=== PATIENT | female | born 1955 | race Caucasian/White ===

== ENCOUNTER 2021-05-14 13:58 | Inpatient (IN) ==
[2021-05-14] MEDS ORDERED: 0.9 % Sodium Chloride 1,000 ML IVC ONE ×3 (15:24→16:40)
[2021-05-14 16:16] LABS: Hemoglobin 9.9 g/dL (11.5-15.4); Mean Corpuscular Hemoglobin 28.7 pg (28.0-33.3); Mean Platelet Volume 9.8 fL (9.4-12.4); Platelet Count 414 K/mcL (140-400); Red Blood Count 3.45 M/mcL (3.82-4.97); Red Cell Distribution Width 14.3 % (11.5-14.5); White Blood Count 19.9 K/mcL (4.3-11.1)
[2021-05-14 16:26] LABS: Albumin 2.9 g/dL (3.5-5.7); Albumin/Globulin Ratio 0.8 (1.1-2.2); Bilirubin,Direct 0.1 mg/dL (0.0-0.2); Bilirubin,Indirect 0.6 mg/dL (0.0-1.0); Bilirubin,Total 0.7 mg/dL (0.3-1.0); Calcium 8.7 mg/dL (8.6-10.3); Globulin 3.5 g/dL (2.4-3.5); Potassium 2.8 mEq/L (3.5-5.1); Total Protein 6.4 g/dL (6.4-8.9)
[2021-05-14] MEDS ORDERED: MetroNIDAZOLE 500 MG/100 ML 500 MG/100 ML BAG IVPB ONE (16:27)
[2021-05-14] MEDS ORDERED: Acetaminophen 325 MG TABLET PO PRN (16:52)
[2021-05-14] MEDS ORDERED: Ondansetron 4 MG/2 ML VIAL IVP PRN (16:52)
[2021-05-14] MEDS ORDERED: Naloxone 0.4 MG/ML INJ IVP PRN (16:52)
[2021-05-14] MEDS: *HR* Heparin 5,000 UNIT/ML VIAL SQ SCH (20:04)
[2021-05-14] MEDS: *HR* HYDROmorphone (PF) 1 MG/ML SYRINGE IVP PRN (20:07)
[2021-05-14] MEDS: 0.9 % Sodium Chloride 1,000 ML IVC SCH (21:06)
[2021-05-14] MEDS ORDERED: Potassium Chloride 40 MEQ, Lidocaine 1% 2 ML in 0.9 % Sodium Chloride 500 ML IVPB ONE (22:00)
[2021-05-15] MEDS: MetroNIDAZOLE 500 MG/100 ML 500 MG/100 ML BAG IVPB SCH ×3 (01:16→17:57)
[2021-05-15 01:35] LABS: Calcium 7.8 mg/dL (8.6-10.3); Magnesium 2.1 mg/dL (1.6-2.6); Phosphorous 3.2 mg/dL (2.7-4.5)
[2021-05-15 01:47] LABS: Hematocrit 26.9 % (35.3-44.9); Hemoglobin 8.9 g/dL (11.5-15.4); Mean Corpuscular HGB Conc 33.1 g/dL (31.6-35.5); Mean Corpuscular Hemoglobin 29.2 pg (28.0-33.3); Mean Corpuscular Volume 88.2 fL (83.0-100.0); Mean Platelet Volume 9.5 fL (9.4-12.4); Platelet Count 375 K/mcL (140-400); Red Blood Count 3.05 M/mcL (3.82-4.97); Red Cell Distribution Width 14.4 % (11.5-14.5); White Blood Count 15.5 K/mcL (4.3-11.1)
[2021-05-15 02:06] LABS: Bacteria,Urine Few per hpf (None-Few); Bilirubin,Urine Negative (Negative); Blood,Urine Small (Negative); Clarity,Urine Turbid (Clear); Color,Urine Yellow (Yellow); Glucose,Urine (UA) Normal (Normal); Ketones,Urine Negative (Negative); Leukocyte Esterase,Urine Trace (Negative); Mucus,Urine Few per lpf (None-Few); Nitrite,Urine Negative (Negative); PH,Urine 5.5 pH Units (5.0-8.0); Protein,Urine 30 mg/dL (Neg-Trace); RBC,Urine 0-3 per hpf (0-3); Specific Gravity,Urine 1.012 (1.010-1.025); Squamous Epithelial Cell,Urine Few per hpf (None-Few)
[2021-05-15 04:32] LABS: Basophils # 0.2 K/mcL (0.0-0.2); Lymphocytes # 1.6 K/mcL (0.6-4.6); Monocytes # 0.6 K/mcL (0.0-1.3); Neutrophils # 13.2 K/mcL (1.6-8.9)
[2021-05-15 04:33] LABS: Hypochromasia Present (Not Present); Platelet Estimate Normal (Normal); Toxic Granulation Present (Not Present)
[2021-05-15] MEDS: *HR* Heparin 5,000 UNIT/ML VIAL SQ SCH ×2 (05:58→17:58)
[2021-05-15] MEDS: *HR* HYDROmorphone (PF) 1 MG/ML SYRINGE IVP PRN ×3 (07:48→20:21)
[2021-05-15] MEDS ORDERED: *HR* Propofol 200 MG/20 ML VIAL IVP ONE (09:58)
[2021-05-15] MEDS ORDERED: *HR* Midazolam HCl 2 MG/2 ML VIAL ONE (09:58)
[2021-05-15] MEDS ORDERED: *HR* FentaNYL (PF) 100 MCG/2 ML VIAL ONE (09:58)
[2021-05-15] MEDS ORDERED: Ondansetron 4 MG/2 ML VIAL ONE (10:01)
[2021-05-15] MEDS ORDERED: *HR* Succinylcholine 200 MG/10 ML VIAL IVP ONE (10:01)
[2021-05-15] MEDS ORDERED: *HR* Rocuronium Bromide 50 MG/5 ML VIAL ONE (10:03)
[2021-05-15] MEDS ORDERED: *HR* Remifentanil 1 MG VIAL IVP ONE (11:13)
[2021-05-15] MEDS ORDERED: EPHEDrine 50 MG/ML VIAL ONE (11:50)
[2021-05-15] MEDS ORDERED: *HR* Vasopressin 20 UNIT/ML VIAL ONE (12:24)
[2021-05-15] MEDS ORDERED: Albumin Human 5% 25.0 GM/500 ML IV.SOLN ONE (12:26)
[2021-05-15] MEDS ORDERED: *HR* HYDROMORPHONE 2 MG/ML VIAL ONE (12:52)
[2021-05-15] MEDS ORDERED: *HR* OxyCODONE Immed Rel 5 MG TABLET PO PRN (13:57)
[2021-05-15] MEDS ORDERED: Ondansetron 4 MG/2 ML VIAL IVP PRN (13:57)
[2021-05-15] MEDS: *HR* HYDROmorphone PF 0.5 MG/0.5 ML SYRINGE IVP PRN ×2 (14:16→14:28)
[2021-05-15] MEDS: 0.9 % Sodium Chloride 1,000 ML IVC SCH ×2 (14:23→17:54)
[2021-05-15] MEDS ORDERED: Acetaminophen IV 1,000 MG/100 ML BAG IVPB ONE ×2 (14:42→14:48)
[2021-05-15] MEDS ORDERED: Naloxone 0.4 MG/ML INJ IVP PRN (15:34)
[2021-05-15] MEDS ORDERED: Acetaminophen 325 MG TABLET PO PRN (15:34)
[2021-05-15] MEDS ORDERED: 0.9 % Sodium Chloride 1,000 ML IVC ONE (15:34)
[2021-05-16] MEDS: *HR* HYDROmorphone (PF) 1 MG/ML SYRINGE IVP PRN ×3 (00:36→19:50)
[2021-05-16] MEDS: MetroNIDAZOLE 500 MG/100 ML 500 MG/100 ML BAG IVPB SCH ×3 (00:47→17:31)
[2021-05-16] MEDS: *HR* Heparin 5,000 UNIT/ML VIAL SQ SCH ×2 (05:26→18:55)
[2021-05-16 05:41] LABS: Hematocrit 29.4 % (35.3-44.9); Hemoglobin 9.6 g/dL (11.5-15.4); Mean Corpuscular HGB Conc 32.7 g/dL (31.6-35.5); Mean Corpuscular Hemoglobin 28.7 pg (28.0-33.3); Mean Platelet Volume 9.9 fL (9.4-12.4); Platelet Count 517 K/mcL (140-400); Red Blood Count 3.34 M/mcL (3.82-4.97); White Blood Count 16.6 K/mcL (4.3-11.1)
[2021-05-16 05:55] LABS: Albumin 2.9 g/dL (3.5-5.7); Albumin/Globulin Ratio 0.9 (1.1-2.2); Bilirubin,Total 0.5 mg/dL (0.3-1.0); Calcium 8.1 mg/dL (8.6-10.3); Globulin 3.2 g/dL (2.4-3.5); Potassium 3.4 mEq/L (3.5-5.1); Total Protein 6.1 g/dL (6.4-8.9)
[2021-05-16] MEDS: 0.9 % Sodium Chloride 1,000 ML IVC SCH ×3 (05:57→21:02)
[2021-05-16] MEDS ORDERED: Potassium Chloride 40 MEQ, Lidocaine 1% 2 ML in 0.9 % Sodium Chloride 500 ML IVPB ONE (07:32)
[2021-05-16] MEDS ORDERED: 0.9 % Sodium Chloride 500 ML IVC ONE ×2 (10:59→23:29)
[2021-05-16] MEDS ORDERED: Acetaminophen IV 1,000 MG/100 ML BAG IVPB ONE (15:58)
[2021-05-17 01:21] LABS: Hematocrit 27.7 % (35.3-44.9); Hemoglobin 8.9 g/dL (11.5-15.4); Mean Corpuscular HGB Conc 32.1 g/dL (31.6-35.5); Mean Corpuscular Hemoglobin 29.1 pg (28.0-33.3); Mean Corpuscular Volume 90.5 fL (83.0-100.0); Mean Platelet Volume 10.9 fL (9.4-12.4); Platelet Count 380 K/mcL (140-400); Red Blood Count 3.06 M/mcL (3.82-4.97); Red Cell Distribution Width 15.6 % (11.5-14.5); White Blood Count 17.9 K/mcL (4.3-11.1)
[2021-05-17] MEDS: MetroNIDAZOLE 500 MG/100 ML 500 MG/100 ML BAG IVPB SCH ×3 (01:23→23:19)
[2021-05-17 02:00] LABS: Albumin 2.8 g/dL (3.5-5.7); Bilirubin,Total 0.4 mg/dL (0.3-1.0); Calcium 7.6 mg/dL (8.6-10.3); Globulin 2.9 g/dL (2.4-3.5); Magnesium 1.9 mg/dL (1.6-2.6); Phosphorous 3.6 mg/dL (2.7-4.5); Potassium 4.1 mEq/L (3.5-5.1); Total Protein 5.7 g/dL (6.4-8.9)
[2021-05-17 02:11] LABS: Lymphocytes # 1.4 K/mcL (0.6-4.6); Monocytes # 0.7 K/mcL (0.0-1.3); Neutrophils # 15.8 K/mcL (1.6-8.9); Platelet Estimate Normal (Normal); Reactive Lymphocytes Present (Not Present); Toxic Granulation Present (Not Present)
[2021-05-17] MEDS: *HR* Heparin 5,000 UNIT/ML VIAL SQ SCH ×2 (05:18→17:35)
[2021-05-17] MEDS: 0.9 % Sodium Chloride 1,000 ML IVC SCH ×3 (05:19→17:43)
[2021-05-17] MEDS: *HR* HYDROmorphone (PF) 1 MG/ML SYRINGE IVP PRN ×2 (08:01→17:33)
[2021-05-17] MEDS: Cefepime HCl 1,000 MG in Water for inj. (sterile) 10 ML IVP SCH (17:34)
[2021-05-17] MEDS: Ondansetron 4 MG/2 ML VIAL IVP PRN (23:19)
[2021-05-18] MEDS: *HR* HYDROmorphone (PF) 1 MG/ML SYRINGE IVP PRN (01:53)
[2021-05-18] MEDS ORDERED: *HR* Promethazine 25 MG/ML VIAL IM ONE (02:18)
[2021-05-18] MEDS: Cefepime HCl 1,000 MG in Water for inj. (sterile) 10 ML IVP SCH (06:21)
[2021-05-18] MEDS: *HR* Heparin 5,000 UNIT/ML VIAL SQ SCH ×3 (06:21→18:31)
[2021-05-18 06:27] LABS: Hematocrit 27.8 % (35.3-44.9); Hemoglobin 9.1 g/dL (11.5-15.4); Mean Corpuscular HGB Conc 32.7 g/dL (31.6-35.5); Mean Corpuscular Hemoglobin 28.6 pg (28.0-33.3); Mean Corpuscular Volume 87.4 fL (83.0-100.0); Mean Platelet Volume 9.2 fL (9.4-12.4); Platelet Count 594 K/mcL (140-400); Red Blood Count 3.18 M/mcL (3.82-4.97); White Blood Count 24.5 K/mcL (4.3-11.1)
[2021-05-18] MEDS ORDERED: Fluconazole 400 MG/200 ML 400 MG/200 ML BAG IVPB ONE (06:47)
[2021-05-18 06:51] LABS: Albumin 2.6 g/dL (3.5-5.7); Albumin/Globulin Ratio 0.8 (1.1-2.2); Bilirubin,Total 0.4 mg/dL (0.3-1.0); Calcium 8.4 mg/dL (8.6-10.3); Globulin 3.2 g/dL (2.4-3.5); Potassium 3.4 mEq/L (3.5-5.1); Total Protein 5.8 g/dL (6.4-8.9)
[2021-05-18] MEDS ORDERED: Isovue-370 500 ML BOTTLE IVP ONE (06:56)
[2021-05-18] MEDS ORDERED: Famotidine 20 MG/2 ML VIAL IVP ONE (06:56)
[2021-05-18] MEDS ORDERED: Potassium Chloride 40 MEQ, Lidocaine 1% 2 ML in 0.9 % Sodium Chloride 500 ML IVPB ONE (08:09)
[2021-05-18] MEDS: Ondansetron 4 MG/2 ML VIAL IVP PRN (08:33)
[2021-05-18] MEDS ORDERED: Lidocaine Jelly 11 ml Syringe MM ONE (09:20)
[2021-05-18] MEDS ORDERED: Tetracaine/Benzocaine/Butamben 1 SPRAY AEROSOL MM ONE (09:20)
[2021-05-18] MEDS ORDERED: Ondansetron 4 MG/2 ML VIAL IVP ONE (09:48)
[2021-05-18] MEDS ORDERED: Isovue-370 500 ML BOTTLE PO ONE (10:42)
[2021-05-18] MEDS: MetroNIDAZOLE 500 MG/100 ML 500 MG/100 ML BAG IVPB SCH (12:04)
[2021-05-18] MEDS: Acetaminophen IV 1,000 MG/100 ML BAG IVPB SCH (15:31)
[2021-05-18] MEDS: 0.9 % Sodium Chloride 1,000 ML IVC SCH (15:48)
[2021-05-18] MEDS ORDERED: MetroNIDAZOLE 500 MG/100 ML 500 MG/100 ML BAG IVPB SCH (21:00)
[2021-05-18] MEDS ORDERED: *HR* HYDROmorphone (PF) 1 MG/ML SYRINGE IM ONE (22:15)
[2021-05-19] MEDS: 0.9 % Sodium Chloride 1,000 ML IVC SCH ×4 (00:22→17:02)
[2021-05-19] MEDS: Cefepime HCl 1,000 MG in Water for inj. (sterile) 10 ML IVP SCH ×2 (00:23→12:21)
[2021-05-19] MEDS: Acetaminophen IV 1,000 MG/100 ML BAG IVPB SCH ×5 (00:30→18:05)
[2021-05-19] MEDS: *HR* Heparin 5,000 UNIT/ML VIAL SQ SCH ×2 (05:38→17:01)
[2021-05-19 05:40] LABS: Mean Corpuscular Hemoglobin 28.3 pg (28.0-33.3); Mean Corpuscular Volume 88.3 fL (83.0-100.0); Platelet Count 534 K/mcL (140-400); Red Blood Count 2.83 M/mcL (3.82-4.97); Red Cell Distribution Width 16.4 % (11.5-14.5); White Blood Count 19.5 K/mcL (4.3-11.1)
[2021-05-19 05:41] LABS: Nucleated Red Blood Cells 0.2 /100 WBC (0)
[2021-05-19 05:56] LABS: Albumin 2.4 g/dL (3.5-5.7); Albumin/Globulin Ratio 0.8 (1.1-2.2); Bilirubin,Total 0.3 mg/dL (0.3-1.0); Calcium 8.4 mg/dL (8.6-10.3); Globulin 2.9 g/dL (2.4-3.5); Potassium 3.7 mEq/L (3.5-5.1); Total Protein 5.3 g/dL (6.4-8.9)
[2021-05-19 06:18] LABS: Anisocytosis 1+ (Not Present); Lymphocytes # 1.6 K/mcL (0.6-4.6); Monocytes # 1.2 K/mcL (0.0-1.3); Neutrophils # 16.4 K/mcL (1.6-8.9); Platelet Estimate Increased (Normal)
[2021-05-19 06:19] LABS: Toxic Granulation Present (Not Present)
[2021-05-19] MEDS: MetroNIDAZOLE 500 MG/100 ML 500 MG/100 ML BAG IVPB SCH ×2 (08:59→17:01)
[2021-05-19] MEDS: Fluconazole 200 MG/100 ML 200 MG/100 ML BAG IVPB SCH (09:00)
[2021-05-20] MEDS: Cefepime HCl 1,000 MG in Water for inj. (sterile) 10 ML IVP SCH ×3 (00:28→23:31)
[2021-05-20] MEDS: Acetaminophen IV 1,000 MG/100 ML BAG IVPB SCH ×5 (00:28→23:32)
[2021-05-20] MEDS: MetroNIDAZOLE 500 MG/100 ML 500 MG/100 ML BAG IVPB SCH ×3 (02:00→16:26)
[2021-05-20] MEDS: *HR* Heparin 5,000 UNIT/ML VIAL SQ SCH ×2 (04:47→17:58)
[2021-05-20 05:19] LABS: Hematocrit 26.7 % (35.3-44.9); Hemoglobin 8.5 g/dL (11.5-15.4); Mean Corpuscular HGB Conc 31.8 g/dL (31.6-35.5); Mean Corpuscular Hemoglobin 28.1 pg (28.0-33.3); Mean Corpuscular Volume 88.1 fL (83.0-100.0); Mean Platelet Volume 9.2 fL (9.4-12.4); Platelet Count 572 K/mcL (140-400); Red Blood Count 3.03 M/mcL (3.82-4.97); Red Cell Distribution Width 16.6 % (11.5-14.5)
[2021-05-20 05:38] LABS: Albumin 2.5 g/dL (3.5-5.7); Albumin/Globulin Ratio 0.8 (1.1-2.2); Bilirubin,Total 0.3 mg/dL (0.3-1.0); Calcium 8.2 mg/dL (8.6-10.3); Potassium 3.2 mEq/L (3.5-5.1); Total Protein 5.5 g/dL (6.4-8.9)
[2021-05-20 06:00] LABS: Lymphocytes # 1.8 K/mcL (0.6-4.6); Monocytes # 1.4 K/mcL (0.0-1.3); Neutrophils # 14.8 K/mcL (1.6-8.9); Platelet Estimate Increased (Normal); Reactive Lymphocytes Present (Not Present)
[2021-05-20] MEDS: 0.9 % Sodium Chloride 1,000 ML IVC SCH ×2 (06:29→16:27)
[2021-05-20] MEDS: Fluconazole 200 MG/100 ML 200 MG/100 ML BAG IVPB SCH (08:06)
[2021-05-20] MEDS ORDERED: Potassium Chloride 40 MEQ, Lidocaine 1% 2 ML in 0.9 % Sodium Chloride 500 ML IVPB ONE ×2 (08:09→17:00)
[2021-05-20 13:25] LABS: Magnesium 1.9 mg/dL (1.6-2.6); Phosphorous 2.4 mg/dL (2.7-4.5)
[2021-05-21] MEDS: MetroNIDAZOLE 500 MG/100 ML 500 MG/100 ML BAG IVPB SCH ×3 (02:59→20:40)
[2021-05-21] MEDS: Acetaminophen IV 1,000 MG/100 ML BAG IVPB SCH (05:28)
[2021-05-21] MEDS: *HR* Heparin 5,000 UNIT/ML VIAL SQ SCH ×2 (05:29→18:55)
[2021-05-21] MEDS: 0.9 % Sodium Chloride 1,000 ML IVC SCH ×2 (05:34→20:41)
[2021-05-21 05:45] LABS: Hematocrit 27.3 % (35.3-44.9); Hemoglobin 8.9 g/dL (11.5-15.4); Mean Corpuscular HGB Conc 32.6 g/dL (31.6-35.5); Mean Corpuscular Hemoglobin 28.8 pg (28.0-33.3); Mean Corpuscular Volume 88.3 fL (83.0-100.0); Mean Platelet Volume 9.8 fL (9.4-12.4); Nucleated Red Blood Cells 0.1 /100 WBC (0); Platelet Count 598 K/mcL (140-400); Red Blood Count 3.09 M/mcL (3.82-4.97); White Blood Count 22.1 K/mcL (4.3-11.1)
[2021-05-21 06:29] LABS: Eosinophils # 0.4 K/mcL (0.0-0.6); Lymphocytes # 2.2 K/mcL (0.6-4.6); Neutrophils # 18.6 K/mcL (1.6-8.9); Platelet Estimate Increased (Normal)
[2021-05-21 06:30] LABS: Anisocytosis 1+ (Not Present)
[2021-05-21 06:54] LABS: Albumin 2.5 g/dL (3.5-5.7); Albumin/Globulin Ratio 0.9 (1.1-2.2); Bilirubin,Total 0.4 mg/dL (0.3-1.0); Calcium 7.9 mg/dL (8.6-10.3); Globulin 2.9 g/dL (2.4-3.5); Potassium 3.4 mEq/L (3.5-5.1); Total Protein 5.4 g/dL (6.4-8.9)
[2021-05-21] MEDS ORDERED: Potassium Chloride 40 MEQ, Lidocaine 1% 2 ML in 0.9 % Sodium Chloride 500 ML IVPB ONE (09:00)
[2021-05-21] MEDS: Fluconazole 200 MG/100 ML 200 MG/100 ML BAG IVPB SCH (10:23)
[2021-05-21] MEDS: Ondansetron 4 MG/2 ML VIAL IVP PRN (10:27)
[2021-05-21 11:09] LABS: Bilirubin,Urine Negative (Negative); Blood,Urine Negative (Negative); Clarity,Urine Clear (Clear); Color,Urine Light-Yellow (Yellow); Glucose,Urine (UA) Normal (Normal); Granular Casts,Urine Few per lpf (None Seen); Hyaline Casts,Urine Few per lpf (None Seen); Ketones,Urine 10 mg/dL (Negative); Leukocyte Esterase,Urine Negative (Negative); Mucus,Urine Few per lpf (None-Few); Nitrite,Urine Negative (Negative); Protein,Urine 30 mg/dL (Neg-Trace); RBC,Urine 0-3 per hpf (0-3); Renal Epithelial Cells,Urine Few per hpf (None-Few); Specific Gravity,Urine 1.021 (1.010-1.025); Transitional Epi Cells,Urine Few per hpf (None-Few); Urobilinogen,Urine Normal (Normal); WBC,Urine 0-3 per hpf (0-3)
[2021-05-21] MEDS: Cefepime HCl 1,000 MG in Water for inj. (sterile) 10 ML IVP SCH (12:47)
[2021-05-21] MEDS ORDERED: *HR* Metoprolol 5 MG/5 ML VIAL IVP ONE (23:53)
[2021-05-22] MEDS: 0.9 % Sodium Chloride 1,000 ML IVC SCH ×2 (00:09→05:43)
[2021-05-22] MEDS: Cefepime HCl 1,000 MG in Water for inj. (sterile) 10 ML IVP SCH (00:09)
[2021-05-22] MEDS: MetroNIDAZOLE 500 MG/100 ML 500 MG/100 ML BAG IVPB SCH ×2 (01:55→09:58)
[2021-05-22] MEDS: *HR* Heparin 5,000 UNIT/ML VIAL SQ SCH ×2 (05:38→17:04)
[2021-05-22 09:20] LABS: Hematocrit 28.2 % (35.3-44.9); Mean Corpuscular HGB Conc 31.9 g/dL (31.6-35.5); Mean Corpuscular Hemoglobin 28.6 pg (28.0-33.3); Mean Corpuscular Volume 89.5 fL (83.0-100.0); Mean Platelet Volume 9.9 fL (9.4-12.4); Nucleated Red Blood Cells 0.1 /100 WBC (0); Platelet Count 511 K/mcL (140-400); Red Blood Count 3.15 M/mcL (3.82-4.97); Red Cell Distribution Width 17.6 % (11.5-14.5); White Blood Count 21.2 K/mcL (4.3-11.1)
[2021-05-22] MEDS: Meropenem 1,000 MG in Water for inj. (sterile) 20 ML IVP SCH ×3 (09:53→23:08)
[2021-05-22] MEDS: Fluconazole 200 MG/100 ML 200 MG/100 ML BAG IVPB SCH (09:54)
[2021-05-22] MEDS: polyethylene glycoL 3350 17 GM POWD.PACK PO SCH ×2 (09:55→20:15)
[2021-05-22] MEDS: Gabapentin 400 MG CAPSULE PO SCH ×3 (10:12→20:15)
[2021-05-22 10:18] LABS: Calcium 7.7 mg/dL (8.6-10.3); Potassium 4.3 mEq/L (3.5-5.1)
[2021-05-22 12:47] LABS: Eosinophils # 0.4 K/mcL (0.0-0.6); Lymphocytes # 0.9 K/mcL (0.6-4.6); Monocytes # 1.3 K/mcL (0.0-1.3); Neutrophils # 17.4 K/mcL (1.6-8.9)
[2021-05-22 12:48] LABS: Anisocytosis 1+ (Not Present)
[2021-05-22 12:49] LABS: Platelet Estimate Normal (Normal)
[2021-05-22] MEDS: Acetaminophen IV 1,000 MG/100 ML BAG IVPB SCH (19:17)
[2021-05-23] MEDS: *HR* Heparin 5,000 UNIT/ML VIAL SQ SCH ×2 (05:26→16:34)
[2021-05-23] MEDS: Gabapentin 400 MG CAPSULE PO SCH ×3 (09:07→21:12)
[2021-05-23] MEDS: allopurinoL 300 MG TABLET PO SCH (09:07)
[2021-05-23] MEDS: polyethylene glycoL 3350 17 GM POWD.PACK PO SCH ×2 (09:07→21:12)
[2021-05-23] MEDS: Meropenem 1,000 MG in Water for inj. (sterile) 20 ML IVP SCH ×3 (09:08→23:38)
[2021-05-23] MEDS: Fluconazole 200 MG/100 ML 200 MG/100 ML BAG IVPB SCH (09:08)
[2021-05-23 13:24] LABS: Hematocrit 26.3 % (35.3-44.9); Hemoglobin 8.2 g/dL (11.5-15.4); Mean Corpuscular HGB Conc 31.2 g/dL (31.6-35.5); Mean Corpuscular Hemoglobin 28.4 pg (28.0-33.3); Mean Platelet Volume 9.3 fL (9.4-12.4); Nucleated Red Blood Cells 0.2 /100 WBC (0); Platelet Count 588 K/mcL (140-400); Red Blood Count 2.89 M/mcL (3.82-4.97); Red Cell Distribution Width 18.4 % (11.5-14.5); White Blood Count 15.7 K/mcL (4.3-11.1)
[2021-05-23 13:56] LABS: Eosinophils # 0.3 K/mcL (0.0-0.6)
[2021-05-23 13:59] LABS: Lymphocytes # 0.6 K/mcL (0.6-4.6); Monocytes # 0.8 K/mcL (0.0-1.3)
[2021-05-23 14:00] LABS: Anisocytosis 1+ (Not Present); Platelet Estimate Increased (Normal)
[2021-05-24 04:08] LABS: Hematocrit 24.4 % (35.3-44.9); Hemoglobin 7.7 g/dL (11.5-15.4); Mean Corpuscular HGB Conc 31.6 g/dL (31.6-35.5); Mean Corpuscular Hemoglobin 28.3 pg (28.0-33.3); Mean Corpuscular Volume 89.7 fL (83.0-100.0); Mean Platelet Volume 9.4 fL (9.4-12.4); Nucleated Red Blood Cells 0.2 /100 WBC (0); Platelet Count 540 K/mcL (140-400); Red Blood Count 2.72 M/mcL (3.82-4.97); Red Cell Distribution Width 18.5 % (11.5-14.5); White Blood Count 12.9 K/mcL (4.3-11.1)
[2021-05-24 04:24] LABS: BUN/Creatinine Ratio 12 (6-26); Blood Urea Nitrogen 13 mg/dL (8-23); Calcium 8.1 mg/dL (8.6-10.3); Carbon Dioxide 23 mEq/L (23-29); Chloride 112 mEq/L (98-107); Glucose 119 mg/dL (70-105); Osmolality,Calculated 295 (280-300); Potassium 3.4 mEq/L (3.5-5.1); Sodium 142 mEq/L (136-145); eGFR For African Americans > 60 (> 60); eGFR For Non-African Americans 52 (> 60)
[2021-05-24 04:46] LABS: Anisocytosis 1+ (Not Present); Lymphocytes # 2.1 K/mcL (0.6-4.6); Monocytes # 0.5 K/mcL (0.0-1.3); Neutrophils # 10.1 K/mcL (1.6-8.9); Reactive Lymphocytes Present (Not Present)
[2021-05-24] MEDS: *HR* Heparin 5,000 UNIT/ML VIAL SQ SCH ×2 (05:36→21:12)
[2021-05-24] MEDS: Meropenem 1,000 MG in Water for inj. (sterile) 20 ML IVP SCH ×2 (10:08→16:10)
[2021-05-24] MEDS: polyethylene glycoL 3350 17 GM POWD.PACK PO SCH ×2 (10:09→21:17)
[2021-05-24] MEDS: Gabapentin 400 MG CAPSULE PO SCH ×3 (10:09→21:17)
[2021-05-24] MEDS: Fluconazole 200 MG/100 ML 200 MG/100 ML BAG IVPB SCH (10:09)
[2021-05-24] MEDS: allopurinoL 300 MG TABLET PO SCH (10:09)
[2021-05-24] MEDS ORDERED: Potassium Chloride Elixir 20 MEQ/15 ML UDC PO ONE (13:09)
[2021-05-24] MEDS: (Cyclosporine [Restasis] 1 EACH Droperette) OP SCH (21:17)
[2021-05-24] MEDS ORDERED: Acetaminophen 325 MG TABLET PO ONE (21:17)
[2021-05-25 04:12] LABS: Basophils # 0.1 K/mcL (0.0-0.2); Basophils % 0.6 %; Eosinophils # 0.3 K/mcL (0.0-0.6); Eosinophils % 2.8 %; Hematocrit 23.6 % (35.3-44.9); Hemoglobin 7.4 g/dL (11.5-15.4); Immature Granulocytes % 7.4 % (0-4); Lymphocytes # 1.3 K/mcL (0.6-4.6); Lymphocytes % 12.2 %; Mean Corpuscular HGB Conc 31.4 g/dL (31.6-35.5); Mean Corpuscular Hemoglobin 28.8 pg (28.0-33.3); Mean Corpuscular Volume 91.8 fL (83.0-100.0); Mean Platelet Volume 11.1 fL (9.4-12.4); Monocytes # 0.7 K/mcL (0.0-1.3); Monocytes % 6.8 %; Neutrophils # 7.5 K/mcL (1.6-8.9); Nucleated Red Blood Cells 0.2 /100 WBC (0); Platelet Count 362 K/mcL (140-400); Red Blood Count 2.57 M/mcL (3.82-4.97); Segmented Neutrophils % 70.2 %; White Blood Count 10.7 K/mcL (4.3-11.1)
[2021-05-25 04:32] LABS: BUN/Creatinine Ratio 12 (6-26); Blood Urea Nitrogen 12 mg/dL (8-23); Calcium 8.2 mg/dL (8.6-10.3); Carbon Dioxide 24 mEq/L (23-29); Chloride 110 mEq/L (98-107); Glucose 118 mg/dL (70-105); Osmolality,Calculated 289 (280-300); Potassium 3.8 mEq/L (3.5-5.1); Sodium 139 mEq/L (136-145); eGFR For African Americans > 60 (> 60); eGFR For Non-African Americans 53 (> 60)
[2021-05-25] MEDS: Meropenem 1,000 MG in Water for inj. (sterile) 20 ML IVP SCH ×2 (04:35→12:33)
[2021-05-25 04:45] LABS: Anisocytosis 1+ (Not Present); Basophilic Stippling 1+ (Not Present); Platelet Estimate Normal (Normal); Polychromasia 1+ (Not Present)
[2021-05-25] MEDS: allopurinoL 300 MG TABLET PO SCH (08:29)
[2021-05-25] MEDS: Gabapentin 400 MG CAPSULE PO SCH (08:29)
[2021-05-25] MEDS: polyethylene glycoL 3350 17 GM POWD.PACK PO SCH (08:30)
[2021-05-25] MEDS: *HR* Heparin 5,000 UNIT/ML VIAL SQ SCH (10:16)
[2021-05-25 10:27] VITALS: BP 121/52; PULSE 107; TEMP 98.6; O2SAT 96
[2021-05-25] MEDS: (Cyclosporine [Restasis] 1 EACH Droperette) OP SCH (12:33)
[2021-05-25] MEDS: Fluconazole 200 MG/100 ML 200 MG/100 ML BAG IVPB SCH (12:33)
== END 2021-05-25 18:41 | disposition home health service (06) | DRG 854 ==
LOC: EMEROOARM 13:58 → 3ANU 13:58 → SUATTDRO 17:37 → 3ANU 18:28 → SUATTDRO 05-15 12:42
PROVIDERS: ADMIT Internal Medicine; ATTEND Internal Medicine